=== PATIENT | male | born 1990 | race Two or more races ===

== ENCOUNTER 2019-12-19 22:45 | Emergency (ER) | payer MEDICAID ==
[~2019-12-19] VITALS: Ht 170.2 cm; Wt 59.0 kg
[2019-12-20] MEDS ORDERED: KETOROLAC 30MG/ML VIAL IM ONE (02:30)
[2019-12-20] MEDS ORDERED: CYCLOBENZAPRINE 10MG TABLET PO ONE (02:30)
[2019-12-20 05:11] VITALS: BP 112/58
== END 2019-12-20 05:12 | disposition home or self-care (01) ==
LOC: ER 22:45
DX: S39.012A Strain of muscle, fascia and tendon of lower back, initial encounter (principal); M25.561 Pain in right knee; B34.9 Viral infection, unspecified; V49.9XXA Car occupant (driver) (passenger) injured in unspecified traffic accident, initial encounter; Y93.9 Activity, unspecified; Y92.410 Unspecified street and highway as the place of occurrence of the external cause
CPT/HCPCS: 72100; 72170; 73562; 96372; 99283; J1885; L1830